=== PATIENT | female | born 1955 | race Caucasian/White ===

== ENCOUNTER 2019-12-29 20:05 | Emergency (ER) | payer OTHER, MEDICARE, BC ==
[~2019-12-29] VITALS: Ht 172.7 cm; Wt 63.6 kg
[2019-12-29 20:06] VITALS: BP 126/51
[2019-12-29] MEDS ORDERED: CLON-527 PO (20:42)
[2019-12-29] MEDS ORDERED: CLON-528 PO (20:42)
== END 2019-12-29 20:59 | disposition home or self-care (01) ==
LOC: ER 20:05
DX: F41.9 Anxiety disorder, unspecified (principal); G89.29 Other chronic pain; F32.9 Major depressive disorder, single episode, unspecified; Z90.49 Acquired absence of other specified parts of digestive tract; Z90.710 Acquired absence of both cervix and uterus; Z98.890 Other specified postprocedural states; Z56.0 Unemployment, unspecified; Z88.0 Allergy status to penicillin; Z88.5 Allergy status to narcotic agent; Z88.8 Allergy status to other drugs, medicaments and biological substances; Z79.899 Other long term (current) drug therapy; Z76.0 Encounter for issue of repeat prescription
CPT/HCPCS: 99281

== ENCOUNTER 2021-08-22 13:20 | Emergency (ER) | payer BC, OTHER ==
[~2021-08-22] VITALS: Ht 172.7 cm; Wt 70.5 kg
[~2021-08-22 13:20] MED LIST: CLON-527 PO; CLON-528 PO
[2021-08-22] MEDS ORDERED: HYDROcodone/acetaminophen 5mg/325mg tablet PO ONE (14:55)
[2021-08-22 15:19] LABS: BASOPHILS # (AUTO) 0.1 X10'3 (0-0.2); BASOPHILS % (AUTO) 0.8 % (0-1); EOSINOPHILS # (AUTO) 0.2 X10'3 (0-0.9); EOSINOPHILS % (AUTO) 2.1 % (0-6); HEMATOCRIT 39.7 % (35.0-45.0); HEMOGLOBIN 13.5 g/dl (12.0-16.0); LYMPHOCYTES # (AUTO) 2.9 X10'3 (1.1-4.8); LYMPHOCYTES % (AUTO) 27.5 % (21-51); MEAN CORPUSCULAR HEMOGLOBIN 32.1 PG (27.0-31.0); MEAN CORPUSCULAR HGB CONC 34.1 g/dL (33.0-36.5); MEAN CORPUSCULAR VOLUME 94.1 FL (78-98); MEAN PLATELET VOLUME 7.3 FL (7.4-10.4); MONOCYTES # (AUTO) 0.6 X10'3 (0-0.9); MONOCYTES % (AUTO) 5.7 % (2-12); NEUTROPHILS # (AUTO) 6.8 X10'3 (1.8-7.7); NEUTROPHILS % (AUTO) 63.9 % (42-75); PLATELET COUNT 357 X10'3 (140-440); RED BLOOD COUNT 4.22 X10'6 (4.20-5.60); RED CELL DISTRIBUTION WIDTH 14.7 % (11.5-14.5); WHITE BLOOD COUNT 10.7 X10'3 (4.5-11.0)
[2021-08-22 15:23] LABS: D-DIMER 0.65 MG/L FEU (0-0.50)
[2021-08-22 15:28] LABS: ALANINE AMINOTRANSFERASE 17 U/L (12-78); ALBUMIN 2.9 G/DL (3.4-5.0); ALBUMIN/GLOBULIN RATIO 0.8 (1.1-1.5); ALKALINE PHOSPHATASE 104 IU/L (46-116); ANION GAP 7 (8-16); ASPARTATE AMINO TRANSFERASE 12 U/L (10-37); BILIRUBIN,TOTAL 0.1 MG/DL (0.1-1.0); BLOOD UREA NITROGEN 6 MG/DL (7-18); CALCIUM 8.7 MG/DL (8.5-10.1); CHLORIDE 111 MMOL/L (99-107); CREATININE 0.75 MG/DL (0.40-0.90); GLUCOSE 81 MG/DL (70-104); SODIUM 145 MMOL/L (135-145); TOTAL CARBON DIOXIDE 27.2 MMOL/L (24-32); TOTAL PROTEIN 6.4 G/DL (6.4-8.2); eGFR 78 ML/MIN
[2021-08-22] MEDS ORDERED: ringers solution, lactated 1000ml IV soln IV ONE (15:40)
[2021-08-22] MEDS ORDERED: iohexol 350MG/ML 100ml bottle IV ONE (15:44)
--- NOTE | 2021-08-22 16:16 | NUR ---
to ct with tech
[2021-08-22] MEDS ORDERED: morphine 2 MG/ML inj. syringe IV ONE (16:50)
[2021-08-22] MEDS ORDERED: ondansetron/PF 4mg/2ml inj IV ONE (16:50)
--- NOTE | 2021-08-22 17:03 | NUR ---
Noted pt's HR to occ drop to [id number]. Pt states this is normal for her. EWA Garcia notified.
--- NOTE | 2021-08-22 17:17 | NUR ---
Dr. Kong at bedside speaking to pt
[2021-08-22] MEDS ORDERED: HYDR-3965 PO (17:30)
[2021-08-22 18:02] VITALS: BP 123/60
[2021-08-23] MEDS ORDERED: IBUP-1984 PO (19:56)
== END 2021-08-22 18:04 | disposition home or self-care (01) ==
LOC: ER 13:21
DX: R07.89 Other chest pain (principal); Z20.822 Contact with and (suspected) exposure to COVID-19; R06.02 Shortness of breath; C80.1 Malignant (primary) neoplasm, unspecified; G40.909 Epilepsy, unspecified, not intractable, without status epilepticus; J44.9 Chronic obstructive pulmonary disease, unspecified; G89.29 Other chronic pain; F17.210 Nicotine dependence, cigarettes, uncomplicated; Z90.49 Acquired absence of other specified parts of digestive tract; Z90.710 Acquired absence of both cervix and uterus; Z56.0 Unemployment, unspecified; Z88.0 Allergy status to penicillin; Z88.8 Allergy status to other drugs, medicaments and biological substances; Z79.899 Other long term (current) drug therapy; Z85.01 Personal history of malignant neoplasm of esophagus; Z85.118 Personal history of other malignant neoplasm of bronchus and lung; Z90.2 Acquired absence of lung [part of]
CPT/HCPCS: 36415; 71045; 71275; 80053; 83880; 84145; 84484; 85025; 85379; 87635; 93005; 96374; 96375; 99285; C9803; J2270; J2405; J7120; Q9967

== ENCOUNTER 2021-08-23 14:40 | Emergency (ER) | payer OTHER ==
[~2021-08-23] VITALS: Ht 172.7 cm; Wt 70.5 kg
[~2021-08-23 14:40] MED LIST changes: +HYDR-3965 PO
[2021-08-23] MEDS ORDERED: HYDROcodone/acetaminophen 5mg/325mg tablet PO ONE (19:50)
[2021-08-23] MEDS ORDERED: ketorolac trometh inj. 60 MG/2 ML VIAL IM ONE (19:50)
[2021-08-23] MEDS ORDERED: ondansetron 4mg rapidly disintigrating tab PO ONE (19:50)
[2021-08-23] MEDS ORDERED: IBUP-1984 PO (19:56)
[2021-08-23 20:27] VITALS: BP 99/52
== END 2021-08-23 20:28 | disposition home or self-care (01) ==
LOC: ER 14:40
DX: M25.572 Pain in left ankle and joints of left foot (principal); G40.909 Epilepsy, unspecified, not intractable, without status epilepticus; J44.9 Chronic obstructive pulmonary disease, unspecified; G89.29 Other chronic pain; Z85.118 Personal history of other malignant neoplasm of bronchus and lung; Z90.49 Acquired absence of other specified parts of digestive tract; Z90.710 Acquired absence of both cervix and uterus; Z56.0 Unemployment, unspecified; Z88.0 Allergy status to penicillin; Z88.8 Allergy status to other drugs, medicaments and biological substances; Z79.899 Other long term (current) drug therapy
CPT/HCPCS: 73610; 73630; 96372; 99284; J1885